=== PATIENT | female | born 1965 | race Hispanic/Latino ===

== ENCOUNTER → 2019-01-20 | Day surgery (SDC) | payer BC ==
[~2019-01-20] MED LIST: GLUCAGON FOR INJ 1 MG VIAL ONE; HYOSCYAMINE 0.125 MG TAB ONE; MIDAZOLAM HCL 2 MG/2 ML VIAL ONE; MULTI-VITAMIN1 EACH PO; PROPOFOL IV EMULSION 10 MG/ML 50 ML VIAL ONE
[2019-01-20 15:15] VITALS: BP 118/84
--- NOTE | 2019-01-20 21:59 | Operative Report ---
DATE OF PROCEDURE: 01/20/2019 SURGEON: Piyush Knox MD PROCEDURE: Colonoscopy with polypectomy. INDICATIONS FOR COLONOSCOPY: Colorectal cancer screening. MEDICATIONS: The patient was done under MAC, please see anesthesiologist's note. PROCEDURE IN DETAIL: With the patient in left lateral decubitus position, a flexible fiberoptic Olympus colonoscope was inserted into the rectum with ease and advanced with some difficulty all the way to the cecum. The colon was excessively tortuous and spastic and suboptimally visualized. The scope was then withdrawn slowly whatever was visualized the mucosa overlying the cecum appeared to be within normal limits. One polyp was removed per cold snare polypectomy from the ascending colon. The transverse appeared to be within normal limits. One polyp was hot biopsied and two polyps were snared in the descending colon. One polypectomy site was hemoclipped. One polyp was hot biopsied from the sigmoid colon. The rectum appeared to be within normal limits. The scope was then retroflexed into the distal rectum and moderate-sized internal hemorrhoids were noted, none of which was actively bleeding. The scope was then straightened out, it was subsequently withdrawn. The patient tolerated procedure well. IMPRESSION: 1. Ascending colon polyp, snared. 2. Descending colon polyps x3, two snared and one hot biopsied. One polypectomy site hemoclipped. 3. Sigmoid colon polyp, hot biopsied. 4. Internal hemorrhoids, none actively bleeding. PLAN: Follow up histology. Initiate high-fiber, low-fat diet. Initiate high-fiber supplement. The patient might benefit from a followup colonoscopy in 2 to 3 years. Piyush Knox MD [facility] [place] /[id number] cc: Nathan Shirley
== END | disposition home or self-care (01) ==
LOC: OR 10:20
PROVIDERS: ATTEND Internal Medicine Gastroenterology
DX: D12.2 Benign neoplasm of ascending colon (principal); D12.4 Benign neoplasm of descending colon; K59.00 Constipation, unspecified; Z01.810 Encounter for preprocedural cardiovascular examination; F41.9 Anxiety disorder, unspecified; Z80.0 Family history of malignant neoplasm of digestive organs; K63.5 Polyp of colon; K64.8 Other hemorrhoids
CPT/HCPCS: 45384; 45385; 81025; 93005; J1610; J2250; J2704; 45378